=== PATIENT | male | born 1970 | race Caucasian/White ===

== ENCOUNTER 2020-11-06 22:49 | Emergency (ER) | payer SELFPAY ==
[2020-11-06] MEDS ORDERED: Sodium Chloride 0.9% 10 ML Syringe FLUSH PRN (23:09)
[2020-11-06] MEDS ORDERED: cefTRIAXone 2 GM in Sodium Chloride 0.9% 100 ML IV ONE (23:09)
[2020-11-06] MEDS ORDERED: Doxycycline 100 MG Cap PO ONE (23:10)
[2020-11-06] MEDS ORDERED: Mupirocin Oint 22 GM Tube TOP ONE (23:10)
--- NOTE | 2020-11-06 23:14 | EDM.PDOC ---
ED HPI GENERAL MEDICAL PROBLEM - General Chief Complaint: Skin Complaint Stated Complaint: poss infection on hand Time Seen by Provider: 11/06/20 23:00 Source of Information: Reports: Patient History Limitations: Reports: No Limitations - History of Present Illness INITIAL COMMENTS - FREE TEXT/NARRATIVE: 49-year-old male presents to the ED for evaluation of skin infection involving dorsal aspect of both hands and one on his left facial cheek. Patient is a type II diabetic x3-1/2 years and is controlled with oral medications Metformin and he reports that his blood sugars been hanging around 200 which is normal for him. Patient appears to be schizophrenic or at least has schizoaffective disorder. He reports injury to the dorsal aspect of his left hand when he struck a door frame a week ago. He states sores on his dorsal hand occurred after blunt force trauma with deep abrasion and superficial laceration to dorsal hand over the left third and fourth metacarpals. However now he has pustular sores on dorsal aspect of both hands and left facial cheek. He states the areas are quite sore to touch and have gotten quite a bit larger in the last 24 hours. He denies any systemic signs of illness such as fever chills nausea or vomiting. Onset: Sudden Onset Date: 11/05/20 Duration: Hour(s):, Getting Worse Location: Reports: Face (Infected pustule left facial cheek), Upper Extremity, Left (Left dorsal hand), Upper Extremity, Right (Right dorsal hand) Quality: Reports: Ache, Burning Severity: Moderate Improves with: Reports: None Worsens with: Reports: None Context: Reports: Trauma (Reports punching a door frame injuring his left dorsal hand about a week ago. He believes the pustules have formed over the last 24 to 36 hours.). Denies: Activity, Exercise, Lifting, Sick Contact Associated Symptoms: Reports: Other (During problem is recurrent nosebleeds from the right naris for the last 10 days.). Denies: Chest Pain, Cough, cough w sputum, Diaphoresis, Fever/Chills, Headaches, Loss of Appetite, Malaise, Nausea/Vomiting, Rash, Seizure, Shortness of Breath, Syncope Treatments OVERLOCKER: Reports: Other (see below) (None.) Left Hand Pain Score (Numeric/FACES): 6 Right Wrist Pain Score (Numeric/FACES): 6 - Related Data Allergies Allergy/AdvReac Type Severity Reaction Status Date / Time No Known Allergies Allergy Verified 11/06/20 23:00 Home Meds: Home Meds Doxycycline [Vibra-Tabs] 100 mg PO Q12HR #20 tab 11/06/20 [Rx] Past Medical History Cardiovascular History: Reports: Hypertension Endocrine/Metabolic History: Reports: Diabetes, Type I - Infectious Disease History Infectious Disease History: Reports: Novel Coronavirus Social & Family History - Tobacco Use Tobacco Use Status *Q: Unknown Ever Used Tobacco - Living Situation & Occupation Living situation: Reports: Single Occupation: Disabled Social History Comment: Resides in [place]. He is apparently here visiting his mom and brother over the holiday season in [facility] ED ROS GENERAL - Review of Systems Review Of Systems: See Below Constitutional: Denies: Fever, Chills, Malaise, Weakness, Fatigue, Decreased Appetite, Weight Loss HEENT: Reports: Glasses Respiratory: Reports: No Symptoms Cardiovascular: Reports: No Symptoms Endocrine: Reports: Fatigue GI/Abdominal: Reports: No Symptoms : Reports: No Symptoms Musculoskeletal: Reports: No Symptoms Skin: Reports: Other (Wound infection. Increased warmth and tenderness dorsal aspect of both hands and left wrist. Developing mild cellulitis dorsal aspect left wrist.) Neurological: Reports: No Symptoms Psychiatric: Reports: Mood Lability, Other (Schizoaffective disorder versus schizophrenia.) Hematologic/Lymphatic: Reports: No Symptoms Immunologic: Reports: No Symptoms ED EXAM, SKIN/RASH Exam: See Below Exam Limited By: No Limitations General Appearance: Alert, WD/WN, Anxious, Mild Distress, Other (Temperature is 37.1 degrees with a heart rate of 85 and sinus respiratory to 16 with O2 sats 100% room air blood pressure mildly elevated 158/95.) Head: Other (Patient has a pustular lesion left facial cheek measuring 4 mm in diameter. Slight surrounding erythema.) Neck: Normal Inspection, Supple, Non-Tender, Full Range of Motion. No: Lymphadenopathy (L), Lymphadenopathy (R) Respiratory/Chest: No Respiratory Distress, Lungs Clear, Normal Breath Sounds, No Accessory Muscle Use Cardiovascular: Normal Peripheral Pulses, Regular Rate, Rhythm, No Edema, No Gallop, No Murmur, No Rub Peripheral Pulses: 3+: Carotid (L), Carotid (R), Posterior Tibial (L), Posterior Tibial (R), Dorsalis Pedis (L), Dorsalis Pedis (R) GI/Abdominal: Normal Bowel Sounds, Soft, Non-Tender, No Organomegaly, No Mass, Pelvis Stable, Other (Mildly obese) Back Exam: Normal Inspection, Full Range of Motion. No: CVA Tenderness (L), CVA Tenderness (R) Extremities: No Pedal Edema, Other (Patient has pustular dermatitis dorsal aspects of both hands. Patient reports injury to the left dorsal hand by striking a wall a week ago. He did have a superficial laceration abrasion over the third metacarpal. This wound is subsequent become secondarily infected with a pustule present at this time. Surrounding erythema and tenderness on examination increased warmth on examination started to travel up his left dorsal hand over the wrist. He has a pustular lesion on the dorsal aspect of his left hand as well. Question whether or not he may be picking at the skin.). No: Normal Inspection Neurological: Alert, Oriented, CN II-XII Intact, Normal Cognition Psychiatric: Anxious, Other (Exhibiting hypomania type activity. I suspect he has underlying schizophrenia.) Skin: Erythema (With pustules dorsal aspect of both hands. Developing), Increased Warmth ( cellulitis dorsal aspect left wrist. Both dorsal hands and left wrist.) Location, Skin: Face, Upper Extremity, Right (Right dorsal hand), Upper Extremity, Left Course - Vital Signs Last Recorded V/S: Last Vital Signs Temp 37.2 C 11/06/20 22:56 Pulse 85 11/06/20 22:56 Resp 16 11/06/20 22:56 BP 158/95 H 11/06/20 22:56 Pulse Ox 100 11/06/20 22:56 - Orders/Labs/Meds Orders: Active Orders 24 hr Category Date Time Status Peripheral IV Care [RC] . DIRECTED Care 11/06/20 23:09 Active Sodium Chloride 0.9% [Saline Flush] Med 11/06/20 23:09 Active 10 ml FLUSH ASDIRECTED PRN Peripheral IV Insertion Adult [OM.PC] Stat Oth 11/06/20 23:09 Ordered Medication Orders Sodium Chloride (Saline Flush) 10 ml FLUSH ASDIRECTED PRN PRN Reason: Keep Vein Open Last Admin: 11/06/20 23:44 Dose: 10 ml Documented by: [facility] Meds: Medications Generic Name Dose Route Start Last Admin Trade Name Reji PRN Reason Stop Dose Admin Sodium Chloride 10 ml 11/06/20 23:09 11/06/20 23:44 Saline Flush FLUSH 10 ml ASDIRECTED PRN Administration Keep Vein Open Discontinued Medications Generic Name Dose Route Start Last Admin Trade Name Reji PRN Reason Stop Dose Admin Doxycycline Hyclate 200 mg 11/06/20 23:10 11/06/20 23:24 Vibramycin PO 11/06/20 23:11 200 mg ONETIME ONE Administration Ceftriaxone Sodium 2 gm/ 100 mls @ 200 mls/hr 11/06/20 23:09 11/06/20 23:24 Sodium Chloride IV 11/06/20 23:38 200 mls/hr ONETIME ONE Administration Mupirocin 15 gm 11/06/20 23:10 11/06/20 23:23 Bactroban Oint TOP 11/06/20 23:11 15 gram ONETIME ONE Administration - Radiology Interpretation Free Text/Narrative:: 49-year-old male presents to the ED with a secondary wound infection dorsal aspect of left hand with pustular dermatitis and developing cellulitis over the dorsal left wrist and dorsal hand. He also has an infected pustule or wound dorsal aspect of his right hand and a small 3 to 4 mm pustule to left face. This is highly suggestive of MRSA infection. He is afebrile. No signs of systemic toxicity. Question whether he may be picking at his skin due to underlying psychiatric illness. Treatment will be intravenous Rocephin 2 g and oral doxycycline 200 mg p.o. Patient be started on doxycycline 100 mg twice daily for the next 10 days to clear up infection. Second problem was recurrent epistaxis right naris. There is an area of ulceration right anterior nasal septum. This will be treated with topical use heparin with aid of a Q-tip every night at bedtime for the next 10 days to allow this to heal and stop recurrent nosebleeds. Again suggestive of nasal picking. Departure - Departure Time of Disposition: 00:00 Disposition: Home, Self-Care 01 Condition: Fair Clinical Impression: Wound infection, Recurrent epistaxis, Cellulitis of left hand - Discharge Information *PRESCRIPTION DRUG MONITORING PROGRAM REVIEWED*: Not Applicable *COPY OF PRESCRIPTION DRUG MONITORING REPORT IN PATIENT RAIZA: Not Applicable Prescriptions: Doxycycline [Vibra-Tabs] 100 mg PO Q12HR #20 tab Instructions: Cellulitis, Adult Referrals: PCP,None [Primary Care Provider] - Forms: ED Department Discharge Additional Instructions: Evaluation in the emergency room tonight in regards to developing pustular dermatitis dorsal aspect of both hands. Appears that there was a primary wound to the dorsal aspect of your left hand from punching a wall a week ago. Wound has become secondarily infected. You have a pustular dermatitis or infection dorsal aspect of both hands with surrounding cellulitis which means infection under the skin developing on the left hand and wrist area. There is a small pustule on your left facial cheek as well. This suggest infection is likely due to methicillin-resistant staph aureus infection. Treatment was started in the ED with intravenous antibiotic Rocephin 2 g intravenously and then oral doxycycline 200 mg as well. He will need to take doxycycline tablet twice daily for the next 10 days to clear up this infection completely. May use Motrin 600 mg every 6 hours as needed to relieve pain and inflammation. Second problem was recurrent nosebleeds from the right side of your nose. There is a ulcerated area on the inner aspect of the right nares on the nasal septum. Is important not to pick at this area and allow it to heal. Use Bactroban ointment every night at bedtime for the next 10 days applied with a Q-tip to clear up this infection and stop the nosebleeds. It also is important to use a humidifier and sleeping quarters as it during the winter humidity in the air is very low which dries out the nasal lining and causes nosebleeds. Expect marked improvement in the skin rash over the next 3 to 4 days. Follow-up with personal care physician if not completely back to normal in 10 days time Sepsis Event Note (ED) - Evaluation Sepsis Screening Result: No Definite Risk - Focused Exam Vital Signs: Vital Signs Temp Pulse Resp BP Pulse Ox 11/06/20 22:56 37.2 C 85 16 158/95 H 100 - My Orders Last 24 Hours: My Active Orders 11/06/20 23:09 Peripheral IV Care [RC] . DIRECTED Sodium Chloride 0.9% [Saline Flush] 10 ml FLUSH ASDIRECTED PRN Peripheral IV Insertion Adult [OM.PC] Stat - Assessment/Plan Last 24 Hours: My Active Orders 11/06/20 23:09 Peripheral IV Care [RC] . DIRECTED Sodium Chloride 0.9% [Saline Flush] 10 ml FLUSH ASDIRECTED PRN Peripheral IV Insertion Adult [OM.PC] Stat
== END 2020-11-07 00:02 | disposition home or self-care (01) ==
LOC: JD.ED 22:49
DX: L03.114 Cellulitis of left upper limb (principal); R04.0 Epistaxis; I10 Essential (primary) hypertension; E10.9 Type 1 diabetes mellitus without complications
CPT/HCPCS: 96365; 99283; A9270; J0696; J7050